=== PATIENT | female | born 1980 | race Caucasian/White ===

== ENCOUNTER → 2018-08-03 | Outpatient (CLI) | payer OTHER ==
[~2018-08-03] MED LIST: HEPA50004 SQ-INSULIN; MULT-34 PO; PREN1COM10
== END | disposition home or self-care (01) ==
LOC: RAD 08:32
PROVIDERS: ATTEND Internal Medicine Hospice and Palliative Medicine
DX: N83.202 Unspecified ovarian cyst, left side (principal); I87.1 Compression of vein
CPT/HCPCS: C8919

== ENCOUNTER 2019-09-22 07:04 | Emergency (ER) | payer OTHER ==
[~2019-09-22] VITALS: Ht 170.2 cm; Wt 108.9 kg
[2019-09-22] MEDS ORDERED: TOPI25TA8 PO (07:38)
[2019-09-22] MEDS ORDERED: PHEN15CA2 PO (07:38)
[2019-09-22] MEDS ORDERED: SODIUM CHLORIDE 0.9% 1,000ML IVBOLUS ONE ×2 (08:00→09:30)
[2019-09-22] MEDS ORDERED: SODIUM CHLORIDE FLUSH 10ML SYR IVF ONE (08:00)
--- NOTE | 2019-09-22 08:14 | NUR ---
LABS HAVE BEEN DRAWN, IV STARTED. ORDERED FLUIDS HANGING AT THIS TIME. PT ON ANALYTICAL LEAD READING NSR. US HERE NOW TO DO TEST. PT AT BEDSIDE. CALL LIGHT WITHIN REACH. WILL CONTINUE TO MONITOR.
[2019-09-22 08:20] LABS: BASOPHILS # (AUTO) 0.02 x10^3/uL (0-0.1); BASOPHILS % (AUTO) 0 % (0-1); EOSINOPHILS # (AUTO) 0.15 x10^3/uL (0-0.4); EOSINOPHILS % (AUTO) 4 % (1-7); LYMPHOCYTES % (AUTO) 39 % (22-44); MD NO; MEAN CORPUSCULAR HEMOGLOBIN 30.5 pg (27.0-34.8); MEAN CORPUSCULAR HGB CONC 33.4 g/dL (32.4-35.8); MEAN CORPUSCULAR VOLUME 91.3 fL (80-100); MEAN PLATELET VOLUME 8.8 fL (7.4-10.4); MONOCYTES # (AUTO) 0.34 x10^3/uL (0.2-0.8); MONOCYTES % (AUTO) 8 % (2-9); NEUTROPHILS # (AUTO) 2.15 x10^3/uL (1.8-6.8); NEUTROPHILS % (AUTO) 49 % (42-75); PLATELET COUNT 231 x10^3/uL (130-400); RED BLOOD COUNT 4.76 x10^6/uL (3.82-5.3); RED CELL DISTRIBUTION WIDTH 13.7 % (9.6-15.2)
[2019-09-22 08:33] LABS: ALBUMIN 3.9 g/dL (3.4-5.0); ANION GAP 4 mmol/L (5-15); CALCIUM 8.9 mg/dL (8.5-10.1); CHLORIDE 111 mmol/L (98-107); CREATININE 0.85 mg/dL (0.55-1.02)
--- NOTE | 2019-09-22 09:30 | NUR ---
pt to cta
[2019-09-22] MEDS ORDERED: OMNIPAQUE 350 MG/ML, 100ML BOTTLE ONE (09:50)
--- NOTE | 2019-09-22 10:24 | NUR ---
SECOND BAG OF ODERED IV FLUIDS INFUSING AT THIS TIME. PT RESTING CALMLY IN BED, NO STATED COMPLAINTS. WILL CONTINUE TO MONITOR. CALL LIGHT WITHIN REACH.
[2019-09-22 11:04] VITALS: BP 109/71
== END 2019-09-22 11:06 | disposition home or self-care (01) ==
LOC: ED 10:04
DX: G43.C0 Periodic headache syndromes in child or adult, not intractable (principal); R55 Syncope and collapse; R42 Dizziness and giddiness; Z86.718 Personal history of other venous thrombosis and embolism
CPT/HCPCS: 36415; 71045; 71275; 80048; 82040; 84703; 85025; 93005; 93971; 96360; 96361; 99284; J7030; Q9967